=== PATIENT | female | born 1930 | race Caucasian/White ===

== ENCOUNTER → 2016-08-07 | Outpatient (CLI) | payer OTHER ==
[~2016-08-07] MED LIST: ATOR-22 PO; CHOLTAB3 PO; CMD4 PO; CZR50 PO; FRS/40 PO; METO25TA3 PO; MULT-506 PO; POTA-335 PO; POTA10CA28 PO
--- NOTE | 2016-08-08 13:08 | MAMMOGRAPHY REPORT ---
BILATERAL DIGITAL SCREENING MAMMOGRAM WITH CAD: 08/07/2016 CLINICAL HISTORY: Routine screening. TECHNIQUE: Bilateral CC, MLO and repeat left MLO views were obtained. Current study was also evaluat ed with a Computer Aided Detection (CAD) system. COMPARISON: Comparison is made to exams dated: 08/03/2015 mammogram, 07/31/2014 mammogram, 06/09/2013 m ammogram, 05/27/2012 mammogram, 05/24/2011 mammogram, and 01/19/2010 mammogram - [facility]. BREAST COMPOSITION: There are scattered areas of fibroglandular density in both breasts. FINDINGS: There are diffuse bilateral rodlike secretory calcifications in the breasts. Moderate vas cular calcification. No suspicious mass, architectural distortion or cluster of microcalcifications is seen. IMPRESSION: ACR BI-RADS CATEGORY 1: NEGATIVE There is no mammographic evidence of malignancy. A 1 year screening mammogram is recommended. The p atient will receive written notification of the results. Approximately 10% of breast cancers are not detected with mammography. A negative mammographic repor t should not delay biopsy if a clinically suggestive mass is present. Ana Calvo M.D. ay/:08/07/2016 16:34:12 Mailing Machine Assistant: Catalina JASON(R)(M), [facility] letter sent: Normal 1/2 BI-RADS Code: ACR BI-RADS Category 1: Negative
== END | disposition home or self-care (01) ==
LOC: C.MAMM 08:03
PROVIDERS: ATTEND Family Medicine
DX: Z12.31 Encounter for screening mammogram for malignant neoplasm of breast (principal)

== ENCOUNTER → 2017-02-05 | Outpatient (CLI) | payer OTHER ==
--- NOTE | 2017-02-05 12:39 | DIAGNOSTIC IMAGING REPORT ---
AP PELVIS AND RIGHT HIP 3 VIEWS CLINICAL HISTORY: PAIN IN RIGHT HIP COMPARISON STUDY: None FINDINGS: No fractures or dislocations are visualized. There are no erosive or destructive changes. There are multiple right upper quadrant calcifications, consistent with gallbladder calculi. IMPRESSION: 1. Cholelithiasis 2. No fractures, subluxations, or destructive lesions of the right hip are visualized Electronically signed by: Abdulaziz Conn M.D. 02/05/2017 12:37 PM Dictated Date/Time: 02/05/2017 12:36 PM
--- NOTE | 2017-02-05 12:47 | DIAGNOSTIC IMAGING REPORT ---
L-SPINE MIN 4 VIEWS ROUTINE HISTORY: 86 years-old Female PAIN IN RIGHT HIP acute right hip pain without reported trauma COMPARISON: Pelvis and right hip radiographs of same day, CT abdomen and pelvis 10/23/2014 TECHNIQUE: 5 views of the lumbar spine FINDINGS: Bones are moderately demineralized. Mild dextroscoliosis. Multilevel advanced facet arthropathy and endplate spurring is noted. Multilevel mostly moderate intervertebral disc space narrowing. 6 mm retrolisthesis L3 on L4, likely secondary to long-standing facet disease. Alignment is otherwise satisfactory. No compression deformity.. Atherosclerosis of the aorta. Cholelithiasis. Sternotomy wires are partially imaged. IMPRESSION: 1. Moderately demineralized appearance of the bones without acute fracture or subluxation. 2. Multilevel degenerative changes as above. 3. Cholelithiasis. The above report was generated using voice recognition software. It may contain grammatical, syntax or spelling errors. Electronically signed by: Laith Love M.D. 02/05/2017 12:45 PM Dictated Date/Time: 02/05/2017 12:42 PM
--- NOTE | 2017-02-05 12:47 | DIAGNOSTIC IMAGING REPORT ---
RIGHT KNEE 2 VIEWS CLINICAL HISTORY: Right leg pain. FINDINGS: AP and lateral views of the right knee are obtained. No prior studies are available for comparison at the time of dictation. The skeletal structures are osteopenic. No fracture is seen. There is moderate to advanced tricompartmental degenerative joint space narrowing, greatest at the patellofemoral articulation. There are large patellar enthesophytes and marginal osteophytes. No joint effusion is identified. The overlying soft tissues are within normal limits. IMPRESSION: Osteopenia and advanced arthritic change as above. No acute bony abnormality is identified. Electronically signed by: Wood June M.D. 02/05/2017 12:45 PM Dictated Date/Time: 02/05/2017 12:44 PM
== END | disposition home or self-care (01) ==
LOC: C.RAD1850 12:01
PROVIDERS: ATTEND Student in an Organized Health Care Education/Training Program
DX: M25.551 Pain in right hip (principal)

== ENCOUNTER → 2017-03-06 | Outpatient (CLI) | payer OTHER | END | disposition home or self-care (01) | LOC: C.MAMM 10:20 | PROVIDERS: ATTEND Family Medicine | DX: M85.851 Other specified disorders of bone density and structure, right thigh (principal) ==

== ENCOUNTER → 2017-05-11 | Outpatient (CLI) | payer OTHER ==
--- NOTE | 2017-05-11 12:30 | DIAGNOSTIC IMAGING REPORT ---
TWO VIEW CHEST CLINICAL HISTORY: Cough. FINDINGS: PA and lateral chest radiographs are compared to study dated 07/10/2014. The patient is status post midline sternotomy and aortic valve replacement. The heart is mildly enlarged and there is atherosclerotic calcification of the thoracic aorta. The pulmonary vascular structures noncongested. Chronic interstitial thickening is similar to previous. No airspace consolidation or pleural effusion is identified. There is no pneumothorax. The skeletal structures are osteopenic. Advanced arthritic change is seen in the shoulders, left greater than right. Degenerative change and mild hyperkyphosis are identified in the thoracic spine. IMPRESSION: Cardiomegaly with no acute cardiopulmonary abnormality. Electronically signed by: Wood June M.D. 05/11/2017 12:28 PM Dictated Date/Time: 05/11/2017 12:27 PM
== END | disposition home or self-care (01) ==
LOC: C.RAD1850 12:15
PROVIDERS: ATTEND Family Medicine
DX: R05 Cough (principal)

== ENCOUNTER → 2017-08-09 | Outpatient (CLI) | payer OTHER ==
--- NOTE | 2017-08-10 14:19 | MAMMOGRAPHY REPORT ---
BILATERAL DIGITAL SCREENING MAMMOGRAM TOMOSYNTHESIS WITH CAD: 08/09/2017 CLINICAL HISTORY: Routine screening. Patient has no complaints. TECHNIQUE: Breast tomosynthesis in addition to standard 2D mammography was performed. Current study was also evaluated with a Computer Aided Detection (CAD) system. COMPARISON: Comparison is made to exams dated: 08/07/2016 mammogram, 08/03/2015 mammogram, 07/31/2014 ma mmogram, 06/09/2013 mammogram, 05/27/2012 mammogram, and 05/24/2011 mammogram - [facility]. BREAST COMPOSITION: There are scattered areas of fibroglandular density in both breasts. FINDINGS: No suspicious masses, calcifications, or areas of architectural distortion are noted in ei ther breast. There has been no significant interval change compared to prior exams. Scattered bilater al benign-appearing calcifications are not significantly changed. Note that the MLO view is somewhat suboptimal and the left pectoralis muscle is not well visualized due to difficulties with patient po sitioning due to a frozen left shoulder. IMPRESSION: ACR BI-RADS CATEGORY 2: BENIGN There is no mammographic evidence of malignancy. A 1 year screening mammogram is recommended. The pa tient will receive written notification of the results. Approximately 10% of breast cancers are not detected with mammography. A negative mammographic report should not delay biopsy if a clinically suggestive mass is present. Ann Nguyen M.D. /:08/09/2017 13:35:34 Crutcher Helper: Payal Blackman, [facility] letter sent: Normal 1/2 BI-RADS Code: ACR BI-RADS Category 2: Benign
== END | disposition home or self-care (01) ==
LOC: C.MAMM 08:35
PROVIDERS: ATTEND Family Medicine
DX: Z12.31 Encounter for screening mammogram for malignant neoplasm of breast (principal)

== ENCOUNTER → 2017-10-26 | Outpatient (CLI) | payer OTHER ==
--- NOTE | 2017-10-26 14:49 | DIAGNOSTIC IMAGING REPORT ---
BRAIN WITHOUT CONTRAST CLINICAL HISTORY: 87 years-old Female presenting with DEMENTIA, memory loss. TECHNIQUE: Multisequence, multiplanar MR imaging of the brain was performed without the use of intravenous contrast. IV contrast: None. COMPARISON: CT head from 10/26/2010. FINDINGS: Localizer images: Unremarkable. Slight ex vacuo dilatation of the occipital horn of the left lateral ventricle secondary to the old left occipital lobe infarct. Periventricular and subcortical white matter T2/FLAIR hyperintensity, nonspecific but likely indicative of chronic small vessel ischemic change. Small old infarct in the right cerebellar hemisphere also suggested.No mass effect or midline shift. No restricted diffusion to suggest acute ischemia. No hemorrhage. No extra-axial fluid collection. T2 skull base flow voids preserved. Bone marrow signal intensity within the calvarium within normal limits. IMPRESSION: 1. No acute intracranial abnormality. 2. Chronic small vessel ischemic change. 3. Old left occipital lobe infarct. 4. 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 Electronically signed by: Uli Pérez M.D. 10/26/2017 2:48 PM Dictated Date/Time: 10/26/2017 2:41 PM
== END | disposition home or self-care (01) ==
LOC: C.MRI 13:52
PROVIDERS: ATTEND Family Medicine
DX: F03.90 Unspecified dementia, unspecified severity, without behavioral disturbance, psychotic disturbance, mood disturbance, and anxiety (principal); I67.89 Other cerebrovascular disease

== ENCOUNTER 2020-08-07 17:23 | Observation (INO) ==
--- NOTE | 2020-08-07 17:40 | Emergency Department Note ---
History of Present Illness General Chief complaint: Fall Stated complaint: FALL, LAC ABOVE EYE Time Seen by Provider: 08/07/20 17:27 Source: patient and family (Spouse who is at the bedside) Mode of arrival: EMS Limitations: no limitations History of Present Illness Maximum Pain Intensity: 5 This patient comes in after suffering from what sounds like a mechanical fall and hitting her head just above her left eye. She was in usual state of health. She was helping her unload groceries she turned and think she just lost her balance. She hit her head against a corner of a cabinet and she had significant bleeding at home. EMS arrived and used quick "clot and pressure dressing and she does not appear to have any significant bleeding at present. There are some dried blood seen on the bandages but none oozing through it. She denies that she had a syncope or any recent illness. No neck pain or facial injuries. No change in vision. No chest pain or shortness of breath. She does have a mild headache. No abdominal pain. No focal numbness weakness no extremity pain with exception of her left wrist has some mild pain. She is on Eliquis. Home Medications Medication Instructions Recorded Confirmed Type donepezil 5 mg tablet 5 mg PO HS tab 11/14/18 08/07/20 History irbesartan 150 mg tablet 150 mg PO PM tab 11/14/18 08/07/20 History metoprolol succinate 25 mg 12.5 mg PO QAM tab 11/14/18 08/07/20 History tablet,extended release 24 hr metoprolol succinate 25 mg 25 mg PO QPM tab 11/14/18 08/07/20 History tablet,extended release 24 hr multivitamin 1 tab PO DAILY 11/14/18 08/07/20 History potassium chloride 20 mEq 60 meq PO DAILY tab 11/14/18 08/07/20 History tablet,extended release pravastatin 10 mg tablet 10 mg PO HS tab 11/14/18 08/07/20 History cholecalciferol (vitamin D3) 25 mcg PO BID 12/25/19 08/07/20 History memantine 10 mg PO DAILY 12/25/19 08/07/20 History vitamin E 1,000 unit PO BID 12/25/19 08/07/20 History bumetanide 2 mg tablet 2 mg PO DAILY #90 tab 01/21/20 08/07/20 Rx apixaban 5 mg tablet 5 mg PO BID #60 tab 05/12/20 08/07/20 Rx amoxicillin 500 mg PO QID 08/07/20 08/07/20 History Allergies Allergy/AdvReac Type Severity Reaction Status Date / Time celecoxib Allergy Unknown Unknown Verified 08/07/20 18:38 nifedipine Allergy Unknown Unknown Verified 08/07/20 18:38 sulfur dioxide Allergy Unknown Unknown Verified 08/07/20 18:38 diltiazem AdvReac Unknown Unknown Verified 08/07/20 18:38 lisinopril AdvReac Unknown Unknown Verified 08/07/20 18:38 nitroglycerin AdvReac Unknown Unknown Verified 08/07/20 18:38 VYTORIN Allergy Unknown Unknown Uncoded 08/07/20 18:38 Past Med/Surg History Medical History (Updated 08/07/20 @ 19:44 by Jasper Leigh MD) Anticoagulant long-term use CAD (coronary artery disease) Carotid artery disease Cataract Cholelithiasis Chronic diastolic congestive heart failure Chronic venous insufficiency DJD (degenerative joint disease) Dyslipidemia Dysmetabolic syndrome X History of IA (myocardial infarction) History of pneumonia HTN (hypertension) Impaired fasting glucose Lichen planus Obesity Osteopenia Permanent atrial fibrillation Pulmonary hypertension Sialolithiasis Surgical History History of section History of tonsillectomy and adenoidectomy S/P aortic valve replacement with bioprosthetic valve (2002) S/P CABG x 2 (2002) Social History Smoking Status: Never smoker Preferred Language: Swedish Feels Safe at Home: Yes Review of Systems A total of 10 systems reviewed and were otherwise negative Physical Exam Vital Signs Vital Signs - 24 hr 08/07/20 17:30 08/07/20 18:07 Temperature 36.5 C Temperature Source Oral Pulse Rate 84 Respiratory Rate 20 Respiratory Effort / Characteristics Non-Labored Spontaneous Respiratory Depth Normal Respiratory Pattern Regular Blood Pressure 171/86 H Blood Pressure Mean 114 Pulse Oximetry 95 97 Oxygen Delivery Method Room Air Room Air Sepsis Recent Fever Within 48 Hours No Sepsis New/Unexplained Change in Mental Status No Sepsis Action Taken by Nursing No Action Required General: Well developed well nourished female who has a bandage on her head with some dried blood on it but otherwise in no acute distress, breathing comfortably on room air. Normal speech. Alert and orient x3 answers all questions appropriately HEENT: Normal cephalic atraumatic with exception of bandage on her head with some dried blood on it. Pupils are equal round and reactive to light. Extraocular movements are intact. Oropharynx is pink with moist mucous membranes. No swelling of the mouth lips or tongue. Neck: Supple with a midline trachea. No meningeal signs or stiffness, no JVD or bruits. No Stridor. Chest: Clear to auscultation bilaterally. No wheezes or rhonchi. No increased work of breathing. Heart: Regular rate and rhythm without murmurs or gallops. Abdomen: Soft nontender, nondistended without rebound guarding or rigidity. Extremities: No cyanosis clubbing or edema. No calf tenderness or assymetry. Her left wrist is mild swelling and tender mostly medially. Spine/Back. Non tender to palpation. No CVA tenderness Skin: Good turgor without rashes. Neurologic exam: Cranial nerves two through 12 are intact. Motor and sensation are intact and symmetrical throughout. Procedures Free Text Procedures Laceration repairscalp laceration to 2.5cm When the dressing was removed the patient was noted to have brisk bleeding with some pulsatile pumping. I used lidocaine with epi to numb the area and also to try to vasoconstrict the bleeding. I then applied several large sutures with additional lidocaine with epi. The pulsatile bleeding did stop and there was just minimal oozing which also stopped. I have probably applied approximately 7 sutures that were simple interrupted. The patient tolerated the procedure well without difficulties or complications. Course Administered Medications Discontinued Medications Lidocaine/Epinephrine (Lidocaine/Epinephrine 1% 20 Ml Vial) Confirm Administered Dose 20 ml .ROUTE .STK-MED ONE Stop: 08/07/20 18:39 Last Admin: 08/07/20 18:43 Dose: Not Given Documented by: [id number] Lidocaine/Epinephrine (Lidocaine/Epinephrine 1% 20 Ml Vial) 20 ml INFIL NOW ONE Stop: 08/07/20 18:39 Last Admin: 08/07/20 18:43 Dose: 20 ml Documented by: [id number] Medical Decision Making Differential Diagnosis Trauma, fall, intracranial hemorrhage, skull fracture, orthopedic injuries, anemia, laceration Medical Records Attestation: I reviewed the patient's medical records. Home Medications Current Medication List: was personally reviewed by me Laboratory Data Attestation: I reviewed the patient's lab results. Result diagrams: 08/07/20 18:00 08/07/20 18:00 Lab Results 08/07/20 08/07/20 08/07/20 Range/Units 18:00 18:00 18:00 WBC 7.23 (4.8-10.8) K/uL RBC 3.88 L (4.2-5.4) M/uL Hgb 12.5 (12.0-16.0) g/dL Hct 37.6 (37-47) % MCV 96.9 (80-100) fL MCH 32.2 (25-34) pg MCHC 33.2 (32-36) g/dL RDW Std Deviation 47.5 H (36.4-46.3) fL RDW Coeff of Volodymyr 13.5 (11.5-14.5) % Plt Count 160 (130-400) K/uL MPV 9.9 (7.4-10.4) fL Immature Gran % (Auto) 0.1 % Neut % (Auto) 57.9 % Lymph % (Auto) 30.7 % Mclean % (Auto) 8.6 % Eos % (Auto) 2.4 % Baso % (Auto) 0.3 % Neut # (Auto) 4.19 (1.4-6.5) K/uL Lymph # (Auto) 2.22 (1.2-3.4) K/uL Mclean # (Auto) 0.62 H (0.11-0.59) K/uL Eos # (Auto) 0.17 (0-0.5) K/uL Baso # (Auto) 0.02 (0-0.2) K/uL Immature Gran # (Auto) 0.01 (0.00-0.02) K/uL PT 13.0 H (9.0-12.0) Seconds INR 1.3 H (0.9-1.1) APTT 26.1 (21.0-31.0) Seconds PTT Ratio 1.0 Sodium 133 L (136-145) mmol/L Potassium (3.5-5.1) mmol/L Chloride 101 (98-107) mmol/L Carbon Dioxide 28 (21-32) mmol/L Anion Gap 5.0 (3-11) BUN 19 H (7-18) mg/dl Creatinine 1.01 (0.6-1.2) mg/dl Est Cr Clr Drug Dosing 39.8 ml/min Est GFR ( Amer) 57.2 Est GFR (Non-Af Amer) 49.3 BUN/Creatinine Ratio 18.9 (10-20) Glucose 108 H (70-99) mg/dl Calcium 9.4 (8.5-10.1) mg/dl Total Bilirubin 0.8 (0.2-1) mg/dl AST (15-37) U/L ALT 24 (12-78) U/L Alkaline Phosphatase 89 (45-117) U/L Troponin I < 0.015 (0-0.045) ng/ml Total Protein 7.5 (6.4-8.2) gm/dl Albumin 3.5 (3.4-5.0) gm/dl Globulin 4.0 (2.5-4.0) gm/dl Albumin/Globulin Ratio 0.9 (0.9-2) COVID-19 Eval Order 08/07/20 Range/Units 20:00 WBC (4.8-10.8) K/uL RBC (4.2-5.4) M/uL Hgb (12.0-16.0) g/dL Hct (37-47) % MCV (80-100) fL MCH (25-34) pg MCHC (32-36) g/dL RDW Std Deviation (36.4-46.3) fL RDW Coeff of Volodymyr (11.5-14.5) % Plt Count (130-400) K/uL MPV (7.4-10.4) fL Immature Gran % (Auto) % Neut % (Auto) % Lymph % (Auto) % Mclean % (Auto) % Eos % (Auto) % Baso % (Auto) % Neut # (Auto) (1.4-6.5) K/uL Lymph # (Auto) (1.2-3.4) K/uL Mclean # (Auto) (0.11-0.59) K/uL Eos # (Auto) (0-0.5) K/uL Baso # (Auto) (0-0.2) K/uL Immature Gran # (Auto) (0.00-0.02) K/uL PT (9.0-12.0) Seconds INR (0.9-1.1) APTT (21.0-31.0) Seconds PTT Ratio Sodium (136-145) mmol/L Potassium (3.5-5.1) mmol/L Chloride (98-107) mmol/L Carbon Dioxide (21-32) mmol/L Anion Gap (3-11) BUN (7-18) mg/dl Creatinine (0.6-1.2) mg/dl Est Cr Clr Drug Dosing ml/min Est GFR ( Amer) Est GFR (Non-Af Amer) BUN/Creatinine Ratio (10-20) Glucose (70-99) mg/dl Calcium (8.5-10.1) mg/dl Total Bilirubin (0.2-1) mg/dl AST (15-37) U/L ALT (12-78) U/L Alkaline Phosphatase (45-117) U/L Troponin I (0-0.045) ng/ml Total Protein (6.4-8.2) gm/dl Albumin (3.4-5.0) gm/dl Globulin (2.5-4.0) gm/dl Albumin/Globulin Ratio (0.9-2) COVID-19 Eval Order CovFluRsv at [facility] Imaging Data Attestation: I personally reviewed and interpreted this imaging study as kacey ws: My Impression: Left wrist x-raythere is a nondisplaced distal radius wrist fracture Radiologist's Impression: Cervical Spine CT 08/07/20 17:34 CT OF THE CERVICAL SPINE CLINICAL HISTORY: Neck pain status post, COMPARISON STUDY: No previous studies for comparison. CT DOSE: 1928.09 mGy.cm TECHNIQUE: CT scan of the cervical spine was performed from the skull base to the thoracic inlet. Images are reviewed in the axial, sagittal, and coronal planes. IV contrast was not administered for this examination. A dose lowering technique was utilized adhering to the principles of ALARA. FINDINGS: The visualized portions of the lung apices reveal no evidence of pneumothorax. The prevertebral soft tissues are normal. No fractures or subluxations are visualized. There are moderate multilevel degenerative changes. There are areas of posterior to the ligament calcification. There are exuberant left anterolateral osteophytes. There is spinal canal narrowing, most pronounced at the C5 level. There is multilevel foraminal narrowing. IMPRESSION: No evidence of acute fracture or traumatic subluxation. ACT 112: Negative or not required by law. Electronically signed by: Abdulaziz Conn M.D. 08/07/2020 6:[address] 08/07/20 17:34 CT head/brain wo con CLINICAL HISTORY: Head pain status post trauma COMPARISON STUDY: 08/27/2018 TECHNIQUE: Axial CT of the brain is performed from the vertex to the skull base. IV contrast was not administered for this examination. A dose lowering technique was utilized adhering to the principles of ALARA. CT DOSE: FINDINGS: No intra or extra-axial mass lesions are visualized. There is no CT evidence of acute cortical infarction. There is no evidence of midline shift. There is no acute hemorrhage. No calvarial fractures are visualized. There are patchy white matter hypodensities likely on a small vessel basis. There is no evidence of pathologic ventricular dilatation. There is no evidence of acute sinusitis There is left frontal and periorbital edema. IMPRESSION: 1. No acute intracranial findings 2. Left periorbital and left frontal scalp edema ACT 112: Negative or not required by law. Electronically signed by: Abdulaziz Conn M.D. 08/07/2020 6:47 PM Wrist X-Ray 08/07/20 17:34 XR wrist LT min 3V routine CLINICAL HISTORY: Left wrist pain status post trauma COMPARISON: 10/04/2018 DISCUSSION: There is an acute intra-articular fracture of the distal radius. There is no dislocation. The bones are osteopenic. Fracture is essentially nondisplaced. The provided lateral view is limited from a technical standpoint in that it is obliqued. There is a lunate cyst. IMPRESSION: Acute intra-articular fracture of the distal radius. The fracture is essentially nondisplaced. ACT 112: Negative or not required by law. Electronically signed by: Abdulaziz Conn M.D. 08/07/2020 5:48 PM ECG Data Attestation: I personally reviewed and interpreted this ECG as follows: Indication: + weakness Rate (beats per minute): 78 Rhythm: + normal sinus (Although it may actually be A. fib) and + other (poor baseline) ECG Intervals/blocks: + First degree AV block, + Normal QRS and + Normal QT ECG Eldridge: + Normal ECG ST segments: + Normal ST segments ECG Findings: + PVCs and + LVH Comparison ECG Date: from (12/25/19) [facility] Narrative This patient comes in as described above. She was placed on a bus driver/monitor and B2. She suffered from what sounds, can go fall. She hit her head she did have a significant bleeding which seems to be controlled at present with a pressure dressing. I am concerned that she is on Eliquis and I did order CAT scan of the head and neck to rule out any internal injuries or bleeding. She has a normal neurologic exam. IV access was established. Blood work was obtained and also an EKG. She was reassessed frequently. When the dressing was removed she did have brisk bleeding. She apparently had a lot of bleeding at home as well. The bleeding was ultimately controlled with suturing and lidocaine with epi. Her wrist was fractured as well as nondisplaced. I initially ordered a sugar tong splint but her IVs actually in that arm so I will put her in a wrist lacer until she can be seen further by Ortho as I do think she will likely need to stay in the hospital. Covid testing was ordered. She is followed by Dr. Papito Caballero and does believe that her immunizations are up-to-date. Her initial hemoglobin looks good she has no significant electrolyte or metabolic abnormality. I have consulted Dr. Peña to see her in the ER for these measures. Impression & Plan Laceration of scalp, Fall, Anticoagulant long-term use, Fracture of wrist Discharge Plan Visit Data Chief Complaint: Fall Stated Complaint: FALL, LAC ABOVE EYE ED Provider: Jasper Leigh Discharge Problem: Laceration of scalp, Fall, Anticoagulant long-term use, Fracture of wrist Discharge Instructions Activity Restrictions/Additional Instructions: Rest. Apply bacitracin and sterile dressing Return in 5 to 7 days for suture removal You did break your wrist and follow-up with your doctor and orthopedist on Sunday Return if any problems with the wound, redness, pus, fever, drainage, bleeding, any new problems or concerns Forms Stand Alone Forms: My [facility] Service Route Prescriptions Prescriptions: No Action bumetanide 2 mg tablet 2 mg PO DAILY Qty: 90 RF: 3 apixaban 5 mg tablet 5 mg PO BID Qty: 60 RF: 11 metoprolol succinate 25 mg tablet extended release 24 hr 12.5 mg PO QAM RF: 0 metoprolol succinate 25 mg tablet extended release 24 hr 25 mg PO QPM RF: 0 potassium chloride 20 mEq tablet extended release 60 meq PO DAILY RF: 0 pravastatin 10 mg tablet 10 mg PO HS RF: 0 irbesartan 150 mg tablet 150 mg PO PM RF: 0 donepezil 5 mg tablet 5 mg PO HS RF: 0 multivitamin [Daily Multi-Vitamin] tablet 1 tab PO DAILY RF: 0 vitamin E 1,000 unit Capsule 1,000 unit PO BID RF: 0 cholecalciferol (vitamin D3) 25 mcg (1,000 unit) Capsule 25 mcg PO BID RF: 0 memantine 10 mg tablet 10 mg PO DAILY RF: 0 amoxicillin 500 mg capsule 500 mg PO QID RF: 0 Referrals Referrals: Papito Caballero MD [Primary Care Provider] - Discharge Problem: Laceration of scalp Qualifiers: Encounter type: initial encounter Qualified Code(s): S01.01XA - Laceration without foreign body of scalp, initial encounter Fall Qualifiers: Encounter type: initial encounter Qualified Code(s): W19.XXXA - Unspecified fall, initial encounter Fracture of wrist Qualifiers: Encounter type: initial encounter Fracture type: closed Laterality: left Qualified Code(s): S62.102A - Fracture of unspecified carpal bone, left wrist, initial encounter for closed fracture
--- NOTE | 2020-08-07 17:50 | XRay Report ---
XR wrist LT min 3V routine CLINICAL HISTORY: Left wrist pain status post trauma COMPARISON: 10/04/2018 DISCUSSION: There is an acute intra-articular fracture of the distal radius. There is no dislocation. The bones are osteopenic. Fracture is essentially nondisplaced. The provided lateral view is limited from a technical standpoint in that it is obliqued. There is a lunate cyst. IMPRESSION: Acute intra-articular fracture of the distal radius. The fracture is essentially nondispl aced. ACT 112: Negative or not required by law. Electronically signed by: Abdulaziz Conn M.D. 08/07/2020 5:48 PM
[2020-08-07 18:12] LABS: Basophils # (auto) 0.02 K/uL (0-0.2); Basophils % (auto) 0.3 %; Eosinophils # (auto) 0.17 K/uL (0-0.5); Eosinophils % (auto) 2.4 %; Hematocrit (blood only) 37.6 % (37-47); Hemoglobin 12.5 g/dL (12.0-16.0); Immature Granulocytes # (auto) 0.01 K/uL (0.00-0.02); Immature Granulocytes % (auto) 0.1 %; Lymphocytes # (auto) 2.22 K/uL (1.2-3.4); Lymphocytes % (auto) 30.7 %; Mean Corpuscular Hemoglobin 32.2 pg (25-34); Mean Corpuscular Hgb Conc 33.2 g/dL (32-36); Mean Corpuscular Volume 96.9 fL (80-100); Mean Platelet Volume 9.9 fL (7.4-10.4); Monocytes # (auto) 0.62 K/uL (0.11-0.59); Monocytes % (auto) 8.6 %; Neutrophils # (auto) 4.19 K/uL (1.4-6.5); Neutrophils % (auto) 57.9 %; Platelet Count 160 K/uL (130-400); RDW Coefficient of Variation 13.5 % (11.5-14.5); RDW Standard Deviation 47.5 fL (36.4-46.3); Red Blood Count 3.88 M/uL (4.2-5.4); White Blood Count 7.23 K/uL (4.8-10.8)
[2020-08-07 18:30] LABS: Alanine Aminotransferase 24 U/L (12-78); Albumin Level 3.5 gm/dl (3.4-5.0); BUN Creatinine Ratio 18.9 (10-20); Blood Urea Nitrogen 19 mg/dl (7-18); Calcium 9.4 mg/dl (8.5-10.1); Carbon Dioxide 28 mmol/L (21-32); Chloride 101 mmol/L (98-107); Creatinine Clr Calc Pharmacy 39.8 ml/min; Est GFR (African American) 57.2; Est GFR (Non-African American) 49.3; Glucose 108 mg/dl (70-99); INR 1.3 (0.9-1.1); Partial Thromboplastin Time 26.1 Seconds (21.0-31.0); Sodium 133 mmol/L (136-145)
[2020-08-07 18:34] LABS: Albumin Globulin Ratio 0.9 (0.9-2); Alkaline Phosphatase 89 U/L (45-117); Bilirubin,Total 0.8 mg/dl (0.2-1); Total Protein 7.5 gm/dl (6.4-8.2); Troponin I < 0.015 ng/ml (0-0.045)
[2020-08-07] MEDS ORDERED: LIDOCAINE/EPINEPHRINE 1% 20 ML VIAL ONE (18:38)
[2020-08-07] MEDS ORDERED: LIDOCAINE/EPINEPHRINE 1% 20 ML VIAL INFIL ONE (18:38)
--- NOTE | 2020-08-07 18:48 | CT Scan Report ---
CT head/brain wo con CLINICAL HISTORY: Head pain status post trauma COMPARISON STUDY: 08/27/2018 TECHNIQUE: Axial CT of the brain is performed from the vertex to the skull base. IV contrast was not administered for this examination. A dose lowering technique was utilized adhering to the principles of ALARA. CT DOSE: FINDINGS: No intra or extra-axial mass lesions are visualized. There is no CT evidence of acute cortical infarc tion. There is no evidence of midline shift. There is no acute hemorrhage. No calvarial fractures ar e visualized. There are patchy white matter hypodensities likely on a small vessel basis. There is no evidence of pathologic ventricular dilatation. There is no evidence of acute sinusitis There is left frontal and periorbital edema. IMPRESSION: 1. No acute intracranial findings 2. Left periorbital and left frontal scalp edema ACT 112: Negative or not required by law. Electronically signed by: Abdulaziz Conn M.D. 08/07/2020 6:47 PM
--- NOTE | 2020-08-07 18:51 | CT Scan Report ---
CT OF THE CERVICAL SPINE CLINICAL HISTORY: Neck pain status post, COMPARISON STUDY: No previous studies for comparison. CT DOSE: 1928.09 mGy.cm TECHNIQUE: CT scan of the cervical spine was performed from the skull base to the thoracic inlet. Monica ges are reviewed in the axial, sagittal, and coronal planes. IV contrast was not administered for thi s examination. A dose lowering technique was utilized adhering to the principles of ALARA. FINDINGS: The visualized portions of the lung apices reveal no evidence of pneumothorax. The prevertebral soft tissues are normal. No fractures or subluxations are visualized. There are moderate multilevel degenerative changes. There are areas of posterior to the ligament calc ification. There are exuberant left anterolateral osteophytes. There is spinal canal narrowing, most pronounced at the C5 level. There is multilevel foraminal narrowing. IMPRESSION: No evidence of acute fracture or traumatic subluxation. ACT 112: Negative or not required by law. Electronically signed by: Abdulaziz Conn M.D. 08/07/2020 6:50 PM
[2020-08-07 20:36] LABS: Potassium 4.4 mmol/L (3.5-5.1)
[2020-08-07 20:53] LABS: Influenza A virus by PCR Negative (Neg); Influenza B virus by PCR Negative (Neg); RSV by PCR Negative (Neg); SARS CoV2 RNA(COVID-19) InHosp NEGATIVE (Negative)
--- NOTE | 2020-08-07 21:30 | History & Physical Report ---
Date of Service August 07, 2020 Assessment & Plan (1) Fall: 89 yo F PMHx CAD s/p CABG x2, s/p aortic valve replacement, chronic diastolic HF, HTN, HLD, permanent AFib on Eliquis, DALI admitted for head trauma requiring neuro checks, as well as left radial fracture. Head trauma on chronic anticoagulation: Fall today with deep laceration to left forehead requiring 7 sutures. Hgb stable. Repeat CBC in AM. CT Head with periorbital and forehead soft tissue swelling but no ICH. Patient appears to be at baseline mental statu, per . Neuro checks q1h x4, then q4h following. Holding Eliquis. Low threshold for repeat CT Head should patient's neuro exam change. Fall, left radial fracture: Sustained a fall earlier today; head trauma as above. Also fell onto left arm. XR arm reveals acute non-displaced intra-articular fracture of the distal left radius. Patient placed in wrist lacer for immobilization; Orthopedic consult placed. NPO at midnight for possible intervention. CAD, AFib, HTN, HLD: Continue Plavix, metoprolol, irbesartan, pravastatin. Holding Eliquis due to head trauma. Telemetry for continuous cardiac monitoring. Lower extremity edema, hypokalemia: History of, on Bumex 2mg PO daily. Also takes KCl 60mew daily. Continue the above medications. NSS at 100cc/hr while NPO. May have sips and chips. Code Status: FULL CODE FEN: NPO except sips and meds, NSS at 100cc/hr. Resume low sodium, heart healthy diet after Ortho evaluation DVT ppx: SCDs, holding Eliquis in the setting of head trauma Dispo: Med Surg with Telemetry (2) Left radial fracture: (3) Anticoagulant long-term use: (4) Laceration of scalp: History of Present Illness Chief Complaint: head trauma, fall Primary Care Provider: Papito Caballero MD 89 yo F PMHx CAD s/p CABG x2, s/p aortic valve replacement, chronic diastolic HF, HTN, HLD, permanent AFib on Eliquis, DALI presented to the ER after sustaining a fall earlier today to her left side, hitting her left forehead and left arm. Her also provides some history. She was putting groceries away and "tripped over her own feet" and fell onto her left side. When her noted that she was having a lot of bleeding from her head, he called 911. Upon arrival to the ER, she had a CT scan of the head which did not show any acute intracranial findings, but did show left periorbital and left frontal scalp edema. Dr Leigh performed a left scalp laceration repair with 7 sutures. Her Hgb was 12.5, stable from prior checks on EMR. Due to left arm pain she had left wrist XR which showed acute non-displaced intra-articular fracture of the distal radius. Due to her radial fracture and head trauma on Eliquis, hospitalist service was consulted for admission. Allergies Allergy/AdvReac Type Severity Reaction Status Date / Time celecoxib Allergy Unknown Unknown Verified 08/07/20 18:38 nifedipine Allergy Unknown Unknown Verified 08/07/20 18:38 sulfur dioxide Allergy Unknown Unknown Verified 08/07/20 18:38 diltiazem AdvReac Unknown Unknown Verified 08/07/20 18:38 lisinopril AdvReac Unknown Unknown Verified 08/07/20 18:38 nitroglycerin AdvReac Unknown Unknown Verified 08/07/20 18:38 VYTORIN Allergy Unknown Unknown Uncoded 08/07/20 18:38 Home Medications Medication Instructions Recorded Confirmed Type donepezil 5 mg tablet 5 mg PO HS tab 11/14/18 08/07/20 History irbesartan 150 mg tablet 150 mg PO PM tab 11/14/18 08/07/20 History metoprolol succinate 25 mg 12.5 mg PO QAM tab 11/14/18 08/07/20 History tablet,extended release 24 hr metoprolol succinate 25 mg 25 mg PO QPM tab 11/14/18 08/07/20 History tablet,extended release 24 hr multivitamin 1 tab PO DAILY 11/14/18 08/07/20 History potassium chloride 20 mEq 60 meq PO DAILY tab 11/14/18 08/07/20 History tablet,extended release pravastatin 10 mg tablet 10 mg PO HS tab 11/14/18 08/07/20 History cholecalciferol (vitamin D3) 25 mcg PO BID 12/25/19 08/07/20 History memantine 10 mg PO DAILY 12/25/19 08/07/20 History vitamin E 1,000 unit PO BID 12/25/19 08/07/20 History bumetanide 2 mg tablet 2 mg PO DAILY #90 tab 01/21/20 08/07/20 Rx apixaban 5 mg tablet 5 mg PO BID #60 tab 05/12/20 08/07/20 Rx amoxicillin 500 mg PO QID 08/07/20 08/07/20 History Past Med/Surg History Medical History (Updated 08/08/20 @ 08:36 by Uli Sweeney MD) Anticoagulant long-term use CAD (coronary artery disease) Carotid artery disease Cataract Cholelithiasis Chronic diastolic congestive heart failure Chronic venous insufficiency DJD (degenerative joint disease) Dyslipidemia Dysmetabolic syndrome X History of [place] (myocardial infarction) History of pneumonia HTN (hypertension) Impaired fasting glucose Lichen planus Obesity Osteopenia Permanent atrial fibrillation Pulmonary hypertension Sialolithiasis Surgical History History of section History of tonsillectomy and adenoidectomy S/P aortic valve replacement with bioprosthetic valve (2002) S/P CABG x 2 (2002) Social History Smoking Status: Never smoker Hx Alcohol Use: No Hx Substance Use: No Preferred Language: Honduran Communication Ability: Effective Beliefs That Will Affect Care: None Current Living Situation: Spouse Other Information That Helps Us Care for You: No Feels Safe at Home: Yes Safety Concerns: Feels Safe At This Time Assistive Devices: Denture - Upper and Denture - Lower Review of Systems Review of Systems: All systems reviewed & are unremarkable except as noted in HPI & below Constitutional: no fever, no chills and no malaise Respiratory: no cough and no dyspnea Cardiovascular: no chest pain, no palpitations and no edema Gastrointestinal: no abdominal pain, no constipation and no diarrhea/loose stools Genitourinary: no dysuria and no hematuria Physical Exam Constitutional: WD/WN, vitals as above Eyes: PERRL, conjunctivae normal, anicteric sclerae ENMT: external ear and nose normal, oropharynx normal Neck: normal visual inspection Respiratory: normal respiratory effort, lungs clear to auscultation Cardiovascular: Rate/Rhythm: + irregularly irregular Heart Sounds: no murmur Extremities: + edema (2+ bilateral pitting edema) Gastrointestinal (Abdomen): normal bowel sounds, soft, nontender, no hepatosplenomegaly Musculoskeletal: no cyanosis or clubbing, extremities motor strength 5/5 Skin: no rashes, warm and dry left scalp with repaired laceration with dressing in place Neurologic: alert and oriented with some minor confusion but redirectable, normal speech. PERRLA, EOMI, no nystagmus. Bilateral UE, LE, and face without sensory or motor deficits. No tremor. Psychiatric: A+Ox3, euthymic affect Results & Data Results & Data ([facility]) Vital Signs (Past 12 Hours) Vital Signs Temp Pulse Pulse Resp BP BP Pulse Ox 08/07/20 21:18 76 18 155/76 H 95 08/07/20 19:18 88 18 145/68 H 94 08/07/20 18:07 97 08/07/20 17:30 36.5 C 84 20 171/86 H 95 08/07/20 17:18 82 20 133/79 93 Code Status & VTE Plan VTE Prophylaxis Plan VTE Prophylaxis will be ordered: Yes Supervising Physician Co-Signing Physician Notes Attending addendum: I have physically seen this patient, have supervised the medical residents activities, and agree with the H&P unless as otherwise noted. Assessment and Plan: Status post fall/left periorbital and frontal scalp edema/left wrist distal radius fracture- 7 sutures applied to deep laceration left forehead by the ED Admit to monitored bed Neurochecks per protocol Hold Eliquis Monitor for development of subdural hematoma over the next 3 weeks Left distal radius fracture- Nondisplaced intra-articular fracture Wrist immobilizer placed Consult orthopedic surgery CAD/hypertension/atrial fibrillation- The patient will be admitted to telemetry for serial cardiac enzymes, serial EKG's, cardiac rhythm monitoring and a 2-D echocardiogram with Dopplers. Continue metoprolol, irbesartan and Plavix Hold Eliquis as noted above Remaining orders and notations as noted Resident Activity Tracking Resident Involvement: Resident Care Provided Care Provided: Adult Hospital Medicine (1) Left radial fracture Encounter type: initial encounter (2) Fall Encounter type: initial encounter Qualified Code(s): W19.XXXA - Unspecified fall, initial encounter (3) Laceration of scalp Encounter type: initial encounter Qualified Code(s): S01.01XA - Laceration without foreign body of scalp, initial encounter
[2020-08-07] MEDS ORDERED: ONDANSETRON INJ 2 MG/ML 2 ML VIAL IV PRN (22:15)
[2020-08-07] MEDS: ACETAMINOPHEN 325 MG TAB PO PRN (23:04)
[2020-08-08] MEDS ORDERED: SODIUM CHLORIDE 0.9% 1000ML 1,000 ML IV SCH (01:30)
[2020-08-08 07:18] LABS: Basophils # (auto) 0.01 K/uL (0-0.2); Basophils % (auto) 0.1 %; Eosinophils # (auto) 0.04 K/uL (0-0.5); Eosinophils % (auto) 0.4 %; Hematocrit (blood only) 32.2 % (37-47); Hemoglobin 10.8 g/dL (12.0-16.0); Immature Granulocytes # (auto) 0.02 K/uL (0.00-0.02); Immature Granulocytes % (auto) 0.2 %; Lymphocytes # (auto) 1.56 K/uL (1.2-3.4); Lymphocytes % (auto) 17.2 %; Mean Corpuscular Hgb Conc 33.5 g/dL (32-36); Mean Corpuscular Volume 95.5 fL (80-100); Mean Platelet Volume 9.8 fL (7.4-10.4); Monocytes # (auto) 0.97 K/uL (0.11-0.59); Monocytes % (auto) 10.7 %; Neutrophils # (auto) 6.49 K/uL (1.4-6.5); Neutrophils % (auto) 71.4 %; Platelet Count 148 K/uL (130-400); RDW Coefficient of Variation 13.5 % (11.5-14.5); RDW Standard Deviation 46.7 fL (36.4-46.3); Red Blood Count 3.37 M/uL (4.2-5.4); White Blood Count 9.09 K/uL (4.8-10.8)
[2020-08-08 07:34] LABS: BUN Creatinine Ratio 23.1 (10-20); Calcium 8.8 mg/dl (8.5-10.1); Creatinine Clr Calc Pharmacy 47.9 ml/min; Est GFR (African American) 75.8; Est GFR (Non-African American) 65.4
[2020-08-08] MEDS: METOPROLOL SUCC 25MG EXT REL TAB PO SCH (07:35)
[2020-08-08] MEDS: MEMANTINE HCL 10 MG TAB PO SCH (07:35)
[2020-08-08] MEDS: MULTIVITAMIN TAB PO SCH (07:38)
[2020-08-08] MEDS: POTASSIUM CHLORIDE CRTAB 20 MEQ TABCR PO SCH (07:38)
[2020-08-08] MEDS: BUMETANIDE 1 MG TAB PO SCH (07:39)
--- NOTE | 2020-08-08 08:39 | Orthopedic Consultation ---
Date of Consultation August 08, 2020 Assessment & Plan (1) Closed fracture of left distal radius: Discussed the diagnosis and treatment options with the patient. Cast immobilization is recommended. After verbal informed consent was obtained, as stated above the rings on her left hand were removed. A stockinette was placed up to the elbow. Short arm plaster cast was then placed leaving the thumb free. The wrist was held in neutral and a mild three-point bend was applied to decrease the risk of displacement of the fracture. Patient tolerated the procedure well. Cast instructions were given including to keep the cast dry. Left wrist should be elevated above the elbow. Finger range of motion should be encouraged so her fingers do not get stiff. No lifting with the left upper extremity. Plan will be to remove the cast in 4-6 weeks and transition her back into her splint. Follow-up with me in 2 weeks in clinic with repeat x-rays of the left wrist Present on Admission?: Yes (2) Left shoulder pain: I ordered x-rays of her left shoulder to rule out fracture. Sling immobilization is indicated if there is a fracture only. Suspect this is more likely arthritis than fracture given the mild amount of swelling and no bruising as she is on Eliquis. History of Present Illness Attending Physician: Nathan Rivera DO 89 yo F PMHx CAD s/p CABG x2, s/p aortic valve replacement, chronic diastolic HF, HTN, HLD, permanent AFib on [facility], DALI presented to the ER after sustaining a fall yesterday, hitting her left forehead and left arm. She was putting groceries away and "tripped over her own feet" and fell onto her left side. When her noted that she was having a lot of bleeding from her head, he called 911. Upon arrival to the ER, she had a CT scan of the head which did not show any acute intracranial findings, but did show left periorbital and left frontal scalp edema. Dr Leigh performed a left scalp laceration repair with 7 sutures. Her Hgb was 12.5, stable from prior checks on EMR. Due to left arm pain she had left wrist XR which showed acute non-displaced intra-articular fracture of the distal radius. Due to her radial fracture and head trauma on Eliis, hospitalist service was consulted for admission. Left wrist was placed into a splint in the emergency room. Speaking with the patient this morning she says the splint is fitting her well. Denies any fevers or chills. She says her left shoulder actually hurts her more than her wrist. Denies any numbness or tingling in her fingers. No prior history of injuries to this left upper extremity. Allergies Allergy/AdvReac Type Severity Reaction Status Date / Time celecoxib Allergy Unknown Unknown Verified 08/07/20 18:38 nifedipine Allergy Unknown Unknown Verified 08/07/20 18:38 sulfur dioxide Allergy Unknown Unknown Verified 08/07/20 18:38 diltiazem AdvReac Unknown Unknown Verified 08/07/20 18:38 lisinopril AdvReac Unknown Unknown Verified 08/07/20 18:38 nitroglycerin AdvReac Unknown Unknown Verified 08/07/20 18:38 VYTORIN Allergy Unknown Unknown Uncoded 08/07/20 18:38 Home Medications Medication Instructions Recorded Confirmed Type donepezil 5 mg tablet 5 mg PO HS tab 11/14/18 08/07/20 History irbesartan 150 mg tablet 150 mg PO PM tab 11/14/18 08/07/20 History metoprolol succinate 25 mg 12.5 mg PO QAM tab 11/14/18 08/07/20 History tablet,extended release 24 hr metoprolol succinate 25 mg 25 mg PO QPM tab 11/14/18 08/07/20 History tablet,extended release 24 hr multivitamin 1 tab PO DAILY 11/14/18 08/07/20 History potassium chloride 20 mEq 60 meq PO DAILY tab 11/14/18 08/07/20 History tablet,extended release pravastatin 10 mg tablet 10 mg PO HS tab 11/14/18 08/07/20 History cholecalciferol (vitamin D3) 25 mcg PO BID 12/25/19 08/07/20 History memantine 10 mg PO DAILY 12/25/19 08/07/20 History vitamin E 1,000 unit PO BID 12/25/19 08/07/20 History bumetanide 2 mg tablet 2 mg PO DAILY #90 tab 01/21/20 08/07/20 Rx apixaban 5 mg tablet 5 mg PO BID #60 tab 05/12/20 08/07/20 Rx amoxicillin 500 mg PO QID 08/07/20 08/07/20 History Patient History Medical History (Updated 08/08/20 @ 08:36 by Uli Sweeney MD) Anticoagulant long-term use CAD (coronary artery disease) Carotid artery disease Cataract Cholelithiasis Chronic diastolic congestive heart failure Chronic venous insufficiency DJD (degenerative joint disease) Dyslipidemia Dysmetabolic syndrome X History of [place] (myocardial infarction) History of pneumonia HTN (hypertension) Impaired fasting glucose Lichen planus Obesity Osteopenia Permanent atrial fibrillation Pulmonary hypertension Sialolithiasis Surgical History History of section History of tonsillectomy and adenoidectomy S/P aortic valve replacement with bioprosthetic valve (2002) S/P CABG x 2 (2002) Social History Smoking Status: Never smoker Hx Alcohol Use: No Hx Substance Use: No Preferred Language: Malian Beliefs That Will Affect Care: None Current Living Situation: Spouse Other Information That Helps Us Care for You: No Feels Safe at Home: Yes Safety Concerns: Feels Safe At This Time Assistive Devices: Denture - Upper and Denture - Lower Physical Exam Physical Exam: On exam she is a pleasant female alert and oriented x3 in no acute distress. HEENT exam shows a laceration above her left eyebrow that is been repaired. She has ecchymosis in this location as well as around the left eye. Left upper extremity exam reveals the patient have diminished active range of motion with forward flexion of only 30 degrees abduction of 30 degrees and external rotation of 10 degrees internal rotation to her stomach. Mild tenderness to palpation over the proximal humerus with mild swelling but no bruising. Left wrist exam shows the patient to have tenderness to palpation over the distal radius. She has some bruising this developed distal to where the splint was applied yesterday in the region of her MCP joints. Fingers have some mild swelling. She has her engagement and wedding rings still in place and these are removed today. Fires EPL FPL and interossei. Sensory intact to light touch median ulnar and radial nerve distributions. Results & Data ([facility]) Vital Signs (Past 12 Hours) Vital Signs Temp Pulse Pulse Resp BP Pulse Ox 08/08/20 07:11 36.7 C 72 16 127/74 08/08/20 03:45 36.7 C 71 18 134/81 97 08/07/20 22:24 85 08/07/20 22:21 36.5 C 93 H 23 162/75 H 96 08/07/20 21:18 76 18 155/76 H 95
[2020-08-08] MEDS ORDERED: CHOLECALCIFEROL 1,000 UNITS 25 MCG TAB PO SCH (09:00)
[2020-08-08] MEDS: ACETAMINOPHEN 325 MG TAB PO PRN ×2 (09:30→22:19)
--- NOTE | 2020-08-08 10:19 | XRay Report ---
XR shoulder LT min 2V routine HISTORY: 89 years-old Female shoulder pain. AP, Grashey, scapular Y, axillary acute left shoulder pa in status post fall COMPARISON: Chest radiographs 05/11/2017 TECHNIQUE: 2 views of the left shoulder FINDINGS: Severe osteoarthritis of the glenohumeral joint with prominent marginal spurring of the inferior head neck junction. There is an acute nondisplaced obliquely oriented fracture of the surgical neck of th e humerus. Additionally, there is an acute nondisplaced fracture component of the greater tuberosity. No dislocation. Moderate degeneration of the AC joint. IMPRESSION: 1. Acute nondisplaced fractures of the surgical neck and greater tuberosity of the left humerus. 2. Severe glenohumeral osteoarthritis. ACT 112: Negative or not required by law. The above report was generated using voice recognition software. It may contain grammatical, syntax o r spelling errors. Electronically signed by: Laith Love M.D. 08/08/2020 10:18 AM
--- NOTE | 2020-08-08 10:40 | Hospitalist Progress Note ---
Date of Service August 08, 2020 Assessment & Plan (1) Fall: 89 yo F PMHx CAD s/p CABG x2, s/p aortic valve replacement, chronic diastolic HF, HTN, HLD, permanent AFib on Eliquis, DALI admitted for head trauma requiring neuro checks, as well as left radial fracture. Head Trauma in Setting of Chronic Anticoagulation * No associated loss of consciousness * Sustained fall yesterday with deep laceration to left forehead requiring 7 sutures. * Work-up as follows: - CT Head with periorbital and forehead soft tissue swelling but no ICH. - No FNDs on frequent neurologic checks, neuro exam - H&H stable overall - mild drop appreciated, likely dilutional with ongoing fluids * Continue neurologic checks q4h * Hold home Eliquis for ~1 week * Low threshold for repeat CT Head should patient's neuro exam change. Left Radial Fracture * Sustained from a fall, as above * XR arm reveals acute non-displaced intra-articular fracture of the distal left radius. * Orthopedics consulted: - Cast immobilization initiated 08/08 -- continue for 4-6 weeks - Will require outpatient f/u with Dr. Sweeney in 2 weeks' with repeat XR * Analgesia p.r.n. Left Shoulder Fracture (Surgical Neck) * XR demonstrating nondisplaced fx of surgical neck and greater tuberosity of left humerus * Sling immobilization * Pain control * Counselling about lifestyle risks of diminished functionality in setting of UE fracture * PT, OT Mechanical Fall * No preceding symptoms based on history, diagnostics * Not associated with LOC * PT, OT ordered for functional evaluation * At present, patient does live at home with her CAD, AFib, HTN, HLD * Continue Plavix, metoprolol, irbesartan, pravastatin. * Holding Eliquis due to head trauma. * Telemetry for continuous cardiac monitoring. Lower extremity edema, hypokalemia: * History of, on Bumex 2mg PO daily. Also takes KCl 60mew daily. * Continue the above medications. Code Status: FULL CODE FEN: Heart healthy diet DVT ppx: SCDs, holding Eliquis in the setting of head trauma Dispo: Med Surg with Telemetry. PT/OT for functional assessment, dispo planning thereafter Admission and Anticipated Discharge Date Admission Date: August 07, 2020 Supervising Physician Co-Signing Physician Notes I personally examined the patient and verified all leigh points of history and exam, discussed case, and agree with decision making with Dr Bajwa Feeling okay overall. Talk to case management whenever I see her. Notes that she has a desire to go home. After we discuss the validity of having PT and OT evaluate first, she expresses good understanding of this. Vitals noted, in general she is awake and alert she has large bruising across her left in the side of her head. Her left arm is in a sling. Breathing is unlabored no focal neuro deficits. Fall, multiple fractures, fortunately no overt appearance of head traumahold anticoagulation for a short period just to minimize bruising and bleeding, then resume in the near future. Orthopedic management of her multiple fractures. PT/OT eval and treat. Pain seems reasonably well controlled. Otherwise as above. anemia - follow. likely mild acute blood loss into large areas of bruising. Subjective No acute events overnight. Patient seen at bedside this morning, reports feeling well overall. Story reviewed with her, no additions to add to admitting HPI. She does note that the area above her left eyebrow does hurt quite a bit where the stitches are. Otherwise, she denies any headache, double vision, weakness in her arms or her legs (with exception of where the cast is now in place), or any sensory disturbances. She reports being hungry. Denies chest pain, palpitations, shortness of breath. Review of Systems Review of Systems: As per HPI Physical Exam Physical Exam: General: Frail appearing 89-year-old female who is lying back in her hospital bed, sleeping upon my arrival. She awakens easily and is fully alert and oriented throughout her conversation HEENT: There are multiple large ecchymoses in the left frontal area extending to the hairline, further extending inferiorly towards the orbit. Sutures are in place, wound is otherwise clean and dry. There is no appreciable edema surrounding the eyelid or this wound. It is mildly tender to palpation. Pupils are equal round, and responsive to both direct and indirect pupillary reflexes. Extraocular movements grossly intact. Cardiac: Normal rate, irregular rhythm. S1 and S2 are present with a grade 1 out of 6 systolic ejection murmur best heard up at the right upper sternal border (patient does have history of it aortic valve replacement). Pulmonary: Good respiratory effort with symmetric expansion of the chest. Lungs clear to auscultation bilaterally without crackles or wheezes Abdomen: Abdomen soft, nontender, nondistended to palpation Neuro: - Cranial Nerves: CN I, IX, and X - not assessed. II - PERRL. III/IV/ - EOMs WNL. No nystagmus. V - Facial sensation in tact in all three divisions; jaw opening WNL. VII - Patient is able to smile symmetrically and keep eyes close against resistance. Mild fasciculations appreciated over the left eyelid. VIII - Patient is able to hear finger snapping equally and appropriately. Patient is able to rotate head and shrug shoulders against resistance. XI - Soft palate raises equally and appropriately while saying "ah." XII - patient is able to s tick out tongue and deviate from [id number] appropriately. - Motor: Right upper extremity strength is 5 out of 5 at the shoulder, elbow, wrist. Left upper extremity strength testing significantly limited by cast in place at the forearm; patient did have difficulty moving the left shoulder due to pain. Lower extremity strength 4-5 bilaterally. - Sensation: UE and LE sensation to light touch is grossly intact bilaterally. Results & Data Results & Data ([facility]) Vital Signs (Past 12 Hours) Vital Signs Temp Pulse Resp BP Pulse Ox 08/08/20 07:11 36.7 C 72 16 127/74 08/08/20 03:45 36.7 C 71 18 134/81 97 Resident Activity Tracking Resident Involvement: Resident Care Provided Care Provided: Adult Hospital Medicine (1) Fall Encounter type: initial encounter Qualified Code(s): W19.XXXA - Unspecified fall, initial encounter
[2020-08-08] MEDS: CHOLECALCIFEROL 1,000 UNITS 25 MCG TAB PO SCH ×2 (11:41→20:00)
--- NOTE | 2020-08-08 15:16 | Billing Data ---
Date of Service August 08, 2020 Coding Level of Care Code 17926 Subseq Obs Care Lvl 3
[2020-08-08] MEDS ORDERED: IRBESARTAN 150 MG TAB PO SCH (21:00)
[2020-08-08] MEDS ORDERED: PRAVASTATIN SOD 10 MG TAB PO SCH (21:00)
[2020-08-08] MEDS ORDERED: METOPROLOL SUCC 25MG EXT REL TAB PO SCH (21:00)
[2020-08-08] MEDS ORDERED: DONEPEZIL HCL 5 MG TAB PO SCH (21:00)
--- NOTE | 2020-08-08 21:56 | Electrocardiogram Report ---
Test Reason : Blood Pressure : / mmHG Vent. Rate : 078 BPM Atrial Rate : 074 BPM P-R Int : 000 ms QRS Dur : 088 ms QT Int : 372 ms P-R-T Axes : 000 -18 031 degrees QTc Int : 424 ms Atrial fibrillation Low voltage QRS Septal infarct (cited on or before 25-DEC-2019) Abnormal ECG When compared with ECG of 25-DEC-2019 09:35, Nonspecific T wave abnormality, improved in Inferior leads Confirmed by Garrett Herrera ([id number]) on 08/08/2020 9:56:05 PM Referred By: REFERRED SELF Confirmed By:Garrett Herrera
--- NOTE | 2020-08-08 22:27 | Electrocardiogram Report ---
Test Reason : Blood Pressure : / mmHG Vent. Rate : 074 BPM Atrial Rate : 117 BPM P-R Int : 000 ms QRS Dur : 088 ms QT Int : 414 ms P-R-T Axes : 000 -08 -01 degrees QTc Int : 459 ms Poor data quality, interpretation may be adversely affected Atrial fibrillation with premature ventricular or aberrantly conducted complexes Abnormal ECG When compared with ECG of 07-AUG-2020 17:53, (unconfirmed) No significant change Confirmed by Garrett Herrera ([id number]) on 08/08/2020 10:26:57 PM Referred By: REFERRED SELF Confirmed By:Garrett Herrera
--- NOTE | 2020-08-09 04:46 | Billing Data ---
Date of Service August 09, 2020 Coding Level of Care Code 50329 OBS Care - Level 3
[2020-08-09 07:04] LABS: Basophils # (auto) 0.01 K/uL (0-0.2); Basophils % (auto) 0.2 %; Eosinophils # (auto) 0.14 K/uL (0-0.5); Eosinophils % (auto) 2.2 %; Immature Granulocytes # (auto) 0.01 K/uL (0.00-0.02); Immature Granulocytes % (auto) 0.2 %; Lymphocytes # (auto) 1.85 K/uL (1.2-3.4); Lymphocytes % (auto) 28.6 %; Mean Corpuscular Hemoglobin 31.8 pg (25-34); Mean Corpuscular Hgb Conc 33.3 g/dL (32-36); Mean Corpuscular Volume 95.5 fL (80-100); Mean Platelet Volume 9.9 fL (7.4-10.4); Monocytes # (auto) 0.75 K/uL (0.11-0.59); Monocytes % (auto) 11.6 %; Neutrophils % (auto) 57.2 %; Platelet Count 138 K/uL (130-400); RDW Coefficient of Variation 13.8 % (11.5-14.5); RDW Standard Deviation 47.6 fL (36.4-46.3); Red Blood Count 3.14 M/uL (4.2-5.4); White Blood Count 6.46 K/uL (4.8-10.8)
[2020-08-09 07:05] LABS: INR 1.2 (0.9-1.1); Prothrombin Time 12.3 Seconds (9.0-12.0)
[2020-08-09 07:41] LABS: BUN Creatinine Ratio 22.9 (10-20); Calcium 8.5 mg/dl (8.5-10.1); Creatinine Clr Calc Pharmacy 49.7 ml/min; Est GFR (African American) 76.9; Est GFR (Non-African American) 66.4; Phosphorus 2.8 mg/dl (2.5-4.9); Potassium 3.9 mmol/L (3.5-5.1)
--- NOTE | 2020-08-09 08:17 | Hospitalist Progress Note ---
Date of Service August 09, 2020 Assessment & Plan Admission and Anticipated Discharge Date Admission Date: August 07, 2020 Results & Data Results & Data ([facility]) Vital Signs (Past 12 Hours) Vital Signs Temp Pulse Resp BP Pulse Ox 08/09/20 02:09 36.7 C 76 20 118/71 94 08/08/20 22:56 37.1 C 60 20 113/69 98
[2020-08-09] MEDS: BUMETANIDE 1 MG TAB PO SCH (08:46)
[2020-08-09] MEDS: MULTIVITAMIN TAB PO SCH (08:46)
[2020-08-09] MEDS: METOPROLOL SUCC 25MG EXT REL TAB PO SCH (08:46)
[2020-08-09] MEDS: CHOLECALCIFEROL 1,000 UNITS 25 MCG TAB PO SCH (08:46)
[2020-08-09] MEDS: POTASSIUM CHLORIDE CRTAB 20 MEQ TABCR PO SCH (08:47)
[2020-08-09] MEDS: MEMANTINE HCL 10 MG TAB PO SCH (08:47)
[2020-08-09] MEDS: ACETAMINOPHEN 325 MG TAB PO PRN (09:05)
--- NOTE | 2020-08-09 09:26 | Electrocardiogram Report ---
Test Reason : Blood Pressure : / mmHG Vent. Rate : 077 BPM Atrial Rate : 091 BPM P-R Int : 000 ms QRS Dur : 080 ms QT Int : 386 ms P-R-T Axes : 000 -10 -23 degrees QTc Int : 436 ms Atrial fibrillation Abnormal ECG When compared with ECG of 08-AUG-2020 05:42, No significant change Confirmed by Bob Feliz ([id number]) on 08/09/2020 9:25:39 AM Referred By: REFERRED SELF Confirmed By:Bob Feliz
--- NOTE | 2020-08-09 16:18 | Discharge Summary ---
Date of Service August 09, 2020 Admission HPI Per Admitting Provider Chief Complaint: head trauma, fall Primary Care Provider: Papito Caballero MD 89 yo F PMHx CAD s/p CABG x2, s/p aortic valve replacement, chronic diastolic HF, HTN, HLD, permanent AFib on , DALI presented to the ER after sustaining a fall earlier today to her left side, hitting her left forehead and left arm. Her also provides some history. She was putting groceries away and "tripped over her own feet" and fell onto her left side. When her noted that she was having a lot of bleeding from her head, he called 911. Upon arrival to the ER, she had a CT scan of the head which did not show any acute intracranial findings, but did show left periorbital and left frontal scalp edema. Dr Leigh performed a left scalp laceration repair with 7 sutures. Her Hgb was 12.5, stable from prior checks on EMR. Due to left arm pain she had left wrist XR which showed acute non-displaced intra-articular fracture of the distal radius. Due to her radial fracture and head trauma on , hospitalist kym cruz was consulted for admission. Admission Exam Per Admitting Provider Constitutional: WD/WN, vitals as above Eyes: PERRL, conjunctivae normal, anicteric sclerae ENMT: external ear and nose normal, oropharynx normal Neck: normal visual inspection Respiratory: normal respiratory effort, lungs clear to auscultation Cardiovascular: Rate/Rhythm: + irregularly irregular Heart Sounds: no murmur Extremities: + edema (2+ bilateral pitting edema) Gastrointestinal (Abdomen): normal bowel sounds, soft, nontender, no hepatosplenomegaly Musculoskeletal: no cyanosis or clubbing, extremities motor strength 5/5 Skin: no rashes, warm and dry left scalp with repaired laceration with dressing in place Neurologic: alert and oriented with some minor confusion but redirectable, normal speech. PERRLA, EOMI, no nystagmus. Bilateral UE, LE, and face without sensory or motor deficits. No tremor. Psychiatric: A+Ox3, euthymic affect Principal Diagnosis Fall, Left radial fracture, left humeral fracture Discharge Exam General: Frail appearing, alert and oriented x3 HEENT: There are multiple large ecchymoses in the left frontal area extending to the hairline, further extending inferiorly towards the orbit. Sutures are in place, wound is otherwise clean and dry. There is no appreciable edema surrounding the eyelid or this wound. It is mildly tender to palpation. Pupils are equal round, and responsive to both direct and indirect pupillary reflexes. Extraocular movements grossly intact. Cardiac: Normal rate, irregular rhythm. S1 and S2 are present with a grade 1 out of 6 systolic ejection murmur best heard up at the right upper sternal border (patient does have history of it aortic valve replacement). Pulmonary: Good respiratory effort with symmetric expansion of the chest. Lungs clear to auscultation bilaterally without crackles or wheezes Neuro: CNII-XII grossly intacts. Right upper extremity strength is 5 out of 5 at the shoulder, elbow, wrist. Left upper extremity strength testing significantly limited by cast in place at the forearm and sling on shoulder. Lower extremity strength 4/5 bilaterally. Discharge Data Allergies Allergy/AdvReac Type Severity Reaction Status Date / Time celecoxib Allergy Unknown Unknown Verified 08/07/20 18:38 nifedipine Allergy Unknown Unknown Verified 08/07/20 18:38 sulfur dioxide Allergy Unknown Unknown Verified 08/07/20 18:38 diltiazem AdvReac Unknown Unknown Verified 08/07/20 18:38 lisinopril AdvReac Unknown Unknown Verified 08/07/20 18:38 nitroglycerin AdvReac Unknown Unknown Verified 08/07/20 18:38 VYTORIN Allergy Unknown Unknown Uncoded 08/07/20 18:38 Consultations 08/07/20 21:28 Consult Orthopedic Surgery Routine Ordered Studies 08/07/20 17:34 CT cervical spine wo con Stat CT head/brain wo con Stat Hospital Course (1) Fall: 89 yo F PMHx CAD s/p CABG x2, s/p aortic valve replacement, chronic diastolic HF, HTN, HLD, permanent AFib on Eliquis, DALI admitted for head trauma requiring neuro checks, as well as left radial fracture. Head Trauma in Setting of Chronic Anticoagulation * No associated loss of consciousness * Sustained fall with deep laceration to left forehead requiring 7 sutures. * Work-up as follows: - CT Head with periorbital and forehead soft tissue swelling but no ICH. - No FNDs on frequent neurologic checks, neuro exam - H&H stable overall * Hold home Eliquis for ~1 week Left Radial Fracture * Sustained from a fall, as above * XR arm reveals acute non-displaced intra-articular fracture of the distal left radius. * Orthopedics consulted: - Cast immobilization initiated 08/08 -- continue for 4-6 weeks - Will require outpatient f/u with Dr. Sweeney in 2 weeks' with repeat XR Left Shoulder Fracture (Surgical Neck) * XR demonstrating nondisplaced fx of surgical neck and greater tuberosity of left humerus * Sling immobilization * F/U with ortho as above Mechanical Fall * No preceding symptoms based on history, diagnostics * Not associated with LOC * PT/OT with recommendations for home health PT * Patient lives with who is around 24 for support * PT set up for 08/10 by Case Management CAD, AFib, HTN, HLD * Continued Plavix, metoprolol, irbesartan, pravastatin. * Hold Eliquis due to head trauma -- recommend holding ~1 week; f/u with PCP for further management Lower extremity edema, hypokalemia: * Continued home Bumex 2mg PO daily and KCl 60meq daily Total Time Total Time Spent Total Time Spent (In Minutes): See attending attestation Discharge Plan Discharge Items Patient Disposition: Home - Home Health Services Reason For Visit: FALL HEAD TRUMA, RADIAL FRACTURE Discharge Diagnosis: Fall, head trauma, radial fracture, humerus fracture Activity: Per Instructions section Non-emergency contact: Primary Care Provider Call non-emergency contact if: you have any medication questions and your symptoms worsen Follow-up/Referrals: Papito Caballero MD [Primary Care Provider] - 08/12/20 2:50 pm Uli Sweeney MD [Physician] - Diet: Heart Healthy and Low Sodium (2gm) Addtl Attending Provider Instructions: You were admitted to [facility] after you had a fall resulting in head trauma and a left radial fracture. While admitted you had a full neurologic work-up including CT scan of your head which showed some soft tissue swelling but no bleeding in your brain. You did not have any neurologic deficits on examination. However, it is recommended that you do not take your Eliquis at home for about a week after discharge as this could predispose you to bleeding in your head. You were found to have a fracture in your left wrist. As such, orthopedic surgery immobilized your arm with a cast, which will need to remain in place for 4 to 6 weeks. Additionally, an x-ray of your shoulder found a fracture of your left upper arm. Orthopedics recommended a shoulder sling for this. You should follow up with orthopedic surgery in about 2 weeks to discuss management of the above-mentioned fractures. While admitted, you were also evaluated by physical therapy who recommended that you continue have physical therapy sessions at home once discharged. We have scheduled you with a home health agency who will provide these services for you. Please follow-up with your primary care provider for discussion of your hospitalization and recommendations on when to continue your home Eliquis dosing . If you develop any new concerning symptoms such as confusion, severe headache, double vision, vision changes, nausea, vomiting, weakness in any of your limbs, or any other concerning neurological symptoms please seek emergency medical care. Thank you for allowing us to participate in your care. Pending Studies at Discharge: No Stand-Alone Forms: My [facility] [employer], Smoking Cessation Medications and DC Order Prescriptions: Continued bumetanide 2 mg tablet 2 mg PO DAILY Qty: 90 RF: 3 metoprolol succinate 25 mg tablet extended release 24 hr 12.5 mg PO QAM RF: 0 metoprolol succinate 25 mg tablet extended release 24 hr 25 mg PO QPM RF: 0 potassium chloride 20 mEq tablet extended release 60 meq PO DAILY RF: 0 pravastatin 10 mg tablet 10 mg PO HS RF: 0 irbesartan 150 mg tablet 150 mg PO PM RF: 0 donepezil 5 mg tablet 5 mg PO HS RF: 0 multivitamin [Daily Multi-Vitamin] tablet 1 tab PO DAILY RF: 0 vitamin E 1,000 unit Capsule 1,000 unit PO BID RF: 0 cholecalciferol (vitamin D3) 25 mcg (1,000 unit) Capsule 25 mcg PO BID RF: 0 memantine 10 mg tablet 10 mg PO DAILY RF: 0 Discontinued apixaban 5 mg tablet 5 mg PO BID Qty: 60 RF: 11 amoxicillin 500 mg capsule 500 mg PO QID RF: 0 Discharge Orders: Discharge Order (Routine); Ordered 08/09/20 Ordered By: Micheal Flores Admission Data Admit Date/Time: 08/07/20 21:28 Attending Provider: Pina Mendoza Admit Provider: Cynthia Dejesus Primary Care Provider: Papito Caballero Other Providers: Uli Sweeney Other Interventions: Discharge Summary Assessment (RN) Last Done: 08/09/20 16:34 Supervising Physician Co-Signing Physician Notes Resident Physician Supervision Note: I independently interviewed and examined the patient and verified the leigh history and physical, reviewed labs and image studies, discussed the case with the resident Dr. Reid and agree with the findings and care plan. Resident Activity Tracking Resident Involvement: Resident Care Provided Care Provided: Adult Hospital Medicine
== END 2020-08-09 18:00 | disposition home health service (06) ==
LOC: ED 17:23 → 2W 17:23 → SUATTDRO 21:28 → 2W 21:58